=== PATIENT | male | born 1995 | race Caucasian/White ===

== ENCOUNTER 2019-03-01 19:19 | Emergency (ER) | payer BC ==
--- NOTE | 2019-03-01 20:26 | ED ---
GI/ HPI - HPI Summary HPI Summary: This pt is a 23 y/o male, accompanied by mother and father, [facility] [place] since [place]25/[place]. Pt reports on 02/25/19 he woke up feeling dizzy and at around 11:00 he went to use the bathroom. He notes he has hx of IBS and diarrhea is normal for him, but at 11:00 he had bloody diarrhea, described as bright red blood and believes his stool was darker in color. Pt states his bleeding continued until 02/27/19 and has tapered off since then. However pt has been feeling extremely dizzy with a headache, described as pressure on the sides of his head, and feeling legs heavy. Pt states "a mix of hangover and when you stand up too fast" feeling. Pt denies any rectal bleeding today. His last bowel movement was yesterday with darker stool but no bleeding. Additional symptoms include slight abd pain and rectal pain described as burning (for most of the week it was hard for him to sit down but today it has not been so bad). Denies nausea, vomiting, urinary symptoms, hematuria. Pt called his PCP on 02/27 for the bleeding and is hoping to get testing for Crohns disease because he also has clubbing of his fingernails. They called him today and was advised to come to the ED to rule out internal bleeding. Hx of IBS for the past 10 years with symptoms of abd pain and diarrhea. He has had a colonoscopy in the past. Pt notes he has had excessive sweating for the past year and often wakes up with bed soaked in sweat. Denies taking any medications. Pt reports occasional marijuana and alcohol use. - History of Current Complaint Chief Complaint: EDGIBleed Time Seen by Provider: 03/01/19 20:14 Stated Complaint: IS CONCERNED I MIGHT HAVE INTERNALBLEEDING PER Hx Obtained From: Patient Onset/Duration: Started Days Ago Timing: Lasting Days Current Severity: Mild Pain Intensity: 3 Location of Pain: Diffuse Associated Signs and Symptoms: Positive: Dizziness, Rectal Pain, Bright Red Blood w/Stool, Blood w/Stool, Diarrhea, Abdominal Pain, Other: - POSITIVE: headache, legs feel heavy. Negative: Nausea, Vomiting, Hematuria, UTI Symptoms Aggravating Factor(s): Nothing Alleviating Factor(s): Nothing - Allergy/Home Medications Allergies/Adverse Reactions: Allergies Allergy/AdvReac Type Severity Reaction Status Date / Time No Known Allergies Allergy Verified 03/01/19 19:38 Home Medications: Home Medications NK [No Home Medications Reported] 03/01/19 [History Confirmed 03/01/19] PMH/Surg Hx/FS Hx/Imm Hx Endocrine/Hematology History: Denies: Hx Diabetes GI History: Reports: Hx Irritable Bowel Infectious Disease History: No Infectious Disease History: Denies: Traveled Outside the [place] in Last 30 Days - Family History Known Family History: Negative: Cardiac Disease, Hypertension, Diabetes - Social History Occupation: Employed Full-time Alcohol Use: Occasionally Substance Use Type: Reports: Marijuana Substance Use Comment - Amount & Last Used: Occasionally Smoking Status (MU): Never Smoked Tobacco Review of Systems Negative: Fever Gastrointestinal: Other - POSITIVE: bloody stools, rectal pain Positive: Abdominal Pain, Diarrhea. Negative: Vomiting, Nausea Neurological: Other - POSITIVE: dizziness, legs Positive: Headache All Other Systems Reviewed And Are Negative: Yes Physical Exam - Summary Physical Exam Summary: Appearance: Well-appearing, Well-nourished, lying in bed comfortably Skin: Warm, dry, no obvious rash Eyes: sclera anicteric, no conjunctival pallor ENT: mucous membranes moist, pharynx appears normal Neck: Supple, nontender Respiratory: Clear to auscultation, no signs of respiratory distress Cardiovascular: Normal S1, S2. No murmurs. Normal distal pulses in tibial and radial bilaterally. Abdomen: Soft, nontender, normal active bowel sounds present Rectal exam: No obvious external signs of bleeding, some pain at the 6 o'clock position but no signs of perianal abscess or similar pathology. Pain precluded to complete digital exam. Musculoskeletal: Normal, Strength/ROM Intact Neurological: A&Ox3, awake and alert, mentation is normal, speech is fluent and appropriate Psychiatric: affect is normal, does not appear anxious or depressed Triage Information Reviewed: Yes Vital Signs On Initial Exam: Initial Vitals Temp Pulse Resp BP Pulse Ox 98.2 F 82 16 161/85 98 03/01/19 19:35 03/01/19 19:35 03/01/19 19:35 03/01/19 19:35 03/01/19 19:35 Vital Signs Reviewed: Yes Diagnostics - Vital Signs Vital Signs Temp Pulse Resp BP Pulse Ox 03/01/19 20:13 72 128/97 98 03/01/19 19:35 98.2 F 82 16 161/85 98 - Laboratory Result Diagrams: 03/01/19 20:39 03/01/19 20:39 Lab Statement: Any lab studies that have been ordered have been reviewed, and results considered in the medical decision making process. GIGU Course/Dx - Course Assessment/Plan: Pt is a 23 y/o male, with hx of IBS, presenting to the ED c/o bloody stools since 02/25/19. Pt states his bleeding continued until 02/27/19 and has tapered off since then. Denies any bleeding today. However pt has been feeling extremely dizzy with a headache, described as pressure on the sides of his head, and feeling his legs are heavy. Additional symptoms include slight abd pain and rectal pain. Test results are unremarkable. Stool occult blood is negative. Pt will be discharged home with follow up from a lapidary apprentice for further work up. Return precautions were given. - Diagnoses Provider Diagnoses: Rectal bleeding Discharge - Sign-Out/Discharge Documenting (check all that apply): Patient Departure - Discharge home Patient Received Moderate/Deep Sedation with Procedure: No - Discharge Plan Condition: Good Disposition: HOME Patient Education Materials: Rectal Bleeding (ED) Referrals: Blane Nguyen MD [Medical Doctor] - Additional Instructions: Your blood counts look good and the bleeding appears to have stopped for now. I think your next stop should be seeing a lapidary apprentice to have a more comprehensive evaluation than we can do here in the ED, but for now it is safe for you to be discharged home. - Billing Disposition and Condition Condition: GOOD Disposition: Home - Attestation Statements Document Initiated by Josué: Yes Documenting Scribe: Little Oneal Provider For Whom Josué is Documenting (Include Credential): Eddie Richey MD Scribe Attestation: I, Little Oneal, scribed for Eddie Richey MD on 03/02/19 at 1845. Scribe Documentation Reviewed: Yes Provider Attestation: The documentation as recorded by the Little shirley accurately reflects the service I personally performed and the decisions made by me, Eddie Richey MD Status of Scribe Document: Viewed
[2019-03-01 20:45] LABS: ABS Basophils 0.1 10^3/ul (0-0.2); ABS Eosinophils 0.2 10^3/ul (0-0.6); ABS Lymphocytes 3.1 10^3/ul (1.0-4.8); ABS Monocytes 0.9 10^3/ul (0-0.8); ABS Neutrophils 6.3 10^3/ul (1.5-7.7); Eosinophil % 1.5 %; Hematocrit 46 % (42-52); Hemoglobin 15.6 g/dL (14.0-18.0); Lymphocyte % 29.8 %; Mean Corpuscular HGB Conc 34 g/dL (31-36); Mean Corpuscular Hemoglobin 30 pg (27-31); Mean Corpuscular Volume 89 fL (80-94); Mean Platelet Volume 7.5 fL (7.4-10.4); Platelet Count 256 10^3/uL (150-450); Red Blood Count 5.15 10^6 /uL (4.18-5.48); Red Cell Distribution Width 13 % (10-15); White Blood Count 10.5 10^3/uL (3.5-10.8)
[2019-03-01 20:57] LABS: Activated Partial Thrombo Time 34.1 seconds (26.0-38.0); INR 1.01 (0.82-1.09)
[2019-03-01 21:04] LABS: Albumin 4.8 g/dL (3.2-5.2); Albumin/Globulin Ratio 1.8 (1-3); BUN/Creatinine Ratio 13.6 (8-20); Calcium 9.7 mg/dL (8.6-10.3); EGFR African American 106.5 (>60); Globulin 2.7 g/dL (2-4); Potassium 3.9 mmol/L (3.5-5.0); Total Bilirubin 0.6 mg/dL (0.2-1.0); Total Protein 7.5 g/dL (6.4-8.9)
[2019-03-01 22:28] VITALS: BP 141/87
== END 2019-03-01 22:29 | disposition home or self-care (01) ==
LOC: ED 19:19
DX: K62.5 Hemorrhage of anus and rectum (principal); R42 Dizziness and giddiness; R51 Headache; K58.0 Irritable bowel syndrome with diarrhea; R20.9 Unspecified disturbances of skin sensation
CPT/HCPCS: 36415; 80053; 82270; 85025; 85610; 85730; 86850; 86900; 86901; 99282